=== PATIENT | female | born 1960 | race Caucasian/White ===

== ENCOUNTER 2020-10-10 13:43 | Outpatient (CLI) | payer BC, SELFPAY ==
--- NOTE | 2020-10-10 16:50 | WPDSIXMINUTE ---
Six Minute Walk Procedure Procedure Performed Pulmonary Stress Test (6 min walk) Six Minute Walk This is a 6 minutes walk test. The test was performed and interpreted in accordance with the 2014 ERS/ATS task force guidelines. Findings: The patient's resting room air oxygen saturation measured by pulse oximetry was 100% and her heart rate was 60 bpm. Patient ambulated for 427 meters and oxygen saturation remained 98% to 100%. Heart rate at the end of the study was 78 bpm. The patient did not qualify for supplemental oxygen at rest or with ambulation. There are no prior studies for comparison.
--- NOTE | 2020-10-10 16:51 | WPDPFTINT ---
PFT Procedure Performed PFT Procedure Performed Spirometry with Pre/Post Bronchodilator Plethysmography (Lung Vol) Diffusing Cap (DLCO) Flow Vol Loop PFT Interpretation This is a pulmonary function test with pre and post-bronchodilator spirometry, plethysmography and diffusing capacity. The test was performed and results interpreted in accordance with the 2019 and 2005 ATS/ERS Task Force guidelines respectively using the Global Lung Function Initiative-2012 reference equations. Patient demonstrated good effort and cooperation. Reproducibility criteria were met. The quality of the pre bronchodilator spirometry maneuver was Grade A and post bronchodilator spirometry maneuver was Grade A. Findings: Spirometry: The contour of the inspiratory and expiratory flow tracing are normal. The pre bronchodilator FVC is 4.12 L, 118% predicted. The pre bronchodilator FEV1 is 2.95 L, 108% predicted. The FEV1: FVC ratio 72%. The post bronchodilator FEV1 is 4.15 L, representing a 1% increase. The post bronchodilator FEV1 is 2.93 L, representing a 1% decrease. Plethysmography: The total lung capacity is 5.92 L, 110% predicted. The functional residual capacity is 3.55 L, 117% predicted. The residual volume is 1.69 L, 82% predicted. Diffusing capacity: The absolute diffusion capacity is 19.3, 85% predicted. The diffusing capacity corrected for alveolar volume is 3.73, 85% predicted. Impression: The spirometry is normal without evidence of an obstructive abnormality. There is no significant improvement after inhaling a single dose of albuterol. The lung volumes are normal. The diffusing capacity is normal. There are no prior studies for comparison
== END 2020-10-10 13:44 | disposition home or self-care (01) ==
LOC: ANHPFT 13:45
PROVIDERS: PCP Emergency Medicine; Visit Provider Internal Medicine Critical Care Medicine
DX: R06.02 Shortness of breath (principal)
CPT/HCPCS: 94060; 94618; 94726; 94729

== ENCOUNTER 2021-11-06 17:04 | Emergency (ER) | payer OTHER, BC, SELFPAY ==
--- NOTE | ~2021-11-06 | XR_ITS ---
EXAM: XR finger 5th LT min 2V DATE: 11/06/2021 17:44 HISTORY: SLICED OPEN DOWN TIP OF 5TH DIGIT AT WORK TODAY . COMPARISON: None available. FINDINGS: Normal mineralization. No fracture or dislocation. No lytic or blastic lesion. Joint space s are maintained. No erosion or periosteal change. Distal fifth digit soft tissue laceration. IMPRESSION: No acute osseous finding in the left fifth finger. Reviewed, dictated and finalized at location K.
[2021-11-06 17:12] VITALS: BP 152/71; PULSE 62; RESP 16; TEMP 36.3; O2SAT 100
[2021-11-06] MEDS: TETANUS,DIPHTHERIA,AC PERTUSSIS ADULT (0.5 ML) BOOSTRIX IM (18:38)
--- NOTE | 2021-11-06 18:58 | ED.GENADULT ---
HPI - General Adult General Chief complaint: Extremity Injury, Upper Stated complaint: finger injury Time Seen by Provider: 11/06/21 18:07 History of Present Illness HPI narrative: Patient is a 61-year-old female here for evaluation of a crush injury to her left fifth digit while she was at work earlier today. Patient states that her finger got caught in between a work machine leading to a small laceration. She denies any numbness or tingling in the digit, and has been able to move her finger without issue. Has not taken any medication for symptoms today. Her last tetanus is unknown. Denies any injury to the nailbed. She is right-handed. Related Data Home Medications Medication Instructions Recorded Confirmed antiarthritic combination no.2 900 mg PO 11/12/20 05/14/21 mg tablet (glucosamine-chondroitin) aspirin 81 mg tablet,delayed 81 mg PO DAILY 11/12/20 05/14/21 release (Adult Low Dose Aspirin) calcium carbonate 600 mg calcium 600 mg PO BID 11/12/20 05/14/21 (1,500 mg) tablet (Calcium) cholecalciferol (vitamin D3) 125 125 mcg PO DAILY 11/12/20 05/14/21 mcg (5,000 unit) capsule ferrous sulfate 300 mg (60 mg 300 mg PO DAILY 11/12/20 05/14/21 iron)/5 mL oral liquid multivitamin with minerals-folic tablet PO 11/12/20 05/14/21 acid 200 mcg chewable tablet (Women's Multivitamin Gummies) Allergies Allergy/AdvReac Type Severity Reaction Status Date / Time No Known Drug Allergies Allergy Mild unknown Verified 11/06/21 18:08 Review of Systems Review of Systems: Gen: Denies fevers or chills Eyes: Denies eye pain or visual change ENT: Denies congestion Respiratory: Denies shortness of breath or cough CV: Denies chest pain or palpitations GI: Denies abdominal pain nausea, emesis or diarrhea : denies burning, urgency, frequency or hematuria Musculoskeletal: Denies back pain or muscle pain Neuro: Denies numbness, tingling, weakness or focal weakness Skin: Reports laceration to left 5th fingertip Except as documented, all other systems reviewed and negative [facility] Past Medical History Medical History Asthma Shortness of Breath Tobacco abuse Surgical History Surgical History H/O section S/P excision of ganglion cyst from the hand Family History Family History Father Hypertension Family history of coronary artery disease Mother Patient's mother is in good health Sibling Patient's sister is in good health Patient's brother is in good health Social History Social History Smoking packs per day: 0.5 Smoking cigarettes per day: 10.0 Years smoked: 7 Smoking pack-years: 3.50 Smoking status: Former smoker Alcohol intake: current Exam Narrative: Gen: alert, oriented, no acute distress Eyes: EOMI, no icterus Pulm: Respirations even and unlabored, symmetric thorax expansion, no audible stridor or visible cyanosis CV: Regular rate GI: No distension, no voluntary/involuntary guarding Neuro: AOx4, moves all extremities without apparent difficulty or weakness, follows commands MSK: Full range of motion in right 5th digit and hand. Sensation intact to entire extremity. Skin: patient has an irregular, 0.75 cm laceration to the palmar aspect of the left fifth fingertip with no active bleeding. Psych: Normal mood/affect, insight/judgement good, adequate fund of knowledge, recent/remote memory intact Course Vital Signs Vital signs: Vital Signs Temperature 97.3 F L 11/06/21 17:12 Pulse Rate 62 11/06/21 17:12 Respiratory Rate 16 11/06/21 17:12 Blood Pressure 152/71 H 11/06/21 17:12 Pulse Oximetry 100 11/06/21 17:12 Oxygen Delivery Room Air 11/06/21 17:12 Temperature 97.3 F L 11/06/21 17:12 Pulse Rate 62 11/06/21 17:12
== END 2021-11-06 19:30 | disposition home or self-care (01) ==
PROVIDERS: Emergency Provider Emergency Medicine
DX: S61.217A Laceration without foreign body of left little finger without damage to nail, initial encounter (principal); W23.0XXA Caught, crushed, jammed, or pinched between moving objects, initial encounter; J45.909 Unspecified asthma, uncomplicated; Z87.891 Personal history of nicotine dependence; Z23 Encounter for immunization
CPT/HCPCS: 73140; 90471; 90715; 99283

== ENCOUNTER 2022-12-31 08:36 | Outpatient (CLI) | payer BC, SELFPAY ==
--- NOTE | 2023-01-22 21:38 | WPDSLEEPSTUD ---
Sleep Study Date of Study: 12/31/22 Ordering Provider: ALBERT Jimenez Interpreting Physician: Mae Varela MD Sleep Study Type: Polysomnogram Height: 1.68 m Weight: 63.957 kg Body Mass Index: 22.7 Neck Circumference (inches): 13 [place]: 5 Reason for Sleep Study Patient reports waking at night feeling short of breath, gasping. Sleep History Yue Siu is a 62-year-old woman with episodes of waking at night feeling short of breath and gasping a little to get some air. She rarely awakens from sleep short of breath. She never wakes at night with heartburn, belching or coughing.??She never snores, and never snores loudly enough that others complain. She occasionally has trouble sleeping when she has a cold. She rarely wakes up gasping for breath during the night. She rarely has breathing problems at night. She never sweats excessively at night. She rarely notices her heart pounding or beating irregularly during the night. She never falls asleep during the day. She never falls asleep involuntarily, never falls asleep while driving. She never experiences loss of muscle tone with strong emotion. She never feels paralyzed on waking or falling asleep. She rarely experiences vivid dreams upon waking or falling asleep. She rarely feels afraid of going to sleep. She rarely has nightmares. She rarely recalls her dreams. She occasionally has thoughts racing through her mind. She rarely feels sad or depressed. She occasionally feels anxiety. She rarely notices parts of her body jerk. She never kicks during the night. She rarely feels crawling or aching feelings in her legs. She rarely feels leg pain at night. She occasionally has morning jaw pain, and occasionally grinds her teeth at night. She occasionally feels bothered by pain during the day, rarely awakened by pain during the night. She frequently wakes up feeling stiff in the morning, frequently wakes feeling sore or achy in the morning. She frequently awakens with pain in her neck, spine, or joints. She has memory problems, bowel disturbances with constipation and gas pains, and dizziness. These problems tend to get better when she drinks enough water. Normal bedtime is 8:00 p.m. to 9:00 p.m., falling asleep within 15-30 minutes. She reports getting 7-8 hours of sleep per night. Her wake time is 4-430 a.m.. She wakes up between 2 and 3 times at night to go to the bathroom. she is able to return to sleep within 5-15 minutes. she does not take naps in the afternoon or evenings. A short nap lasting 10 or 15 minutes may be refreshing. She usually feels good on awakening. She feels better in the morning compared to other times of day. Habits:??Tobacco: quit tobacco 36 years ago Caffeine: 3-6 cups per day Alcohol: 1-2 drinks, 2-3 times a week. Recreational substances: none PMFSH Past Medical History Medical History Asthma CESAR (obstructive sleep apnea) Shortness of Breath Tobacco abuse Surgical History Surgical History H/O section S/P excision of ganglion cyst from the hand Family History Family History Father Hypertension Family history of coronary artery disease Mother Patient's mother is in good health Sibling Patient's sister is in good health Patient's brother is in good health Social History Social History Smoking packs per day: 0.5 Smoking cigarettes per day: 10.0 Years smoked: 7 Smoking pack-years: 3.50 Smoking status: Former smoker Alcohol intake: current Medications Home Medications Medication Instructions Recorded Confirmed Type albuterol sulfate 90 mcg/actuation 1 inh inhalation Q4-6H PRN 11/12/20 05/21/22 Rx aerosol inhaler shortness of breath or wheezing #8.5 grams ant
[2023-01-22 22:06] VITALS: BMI 22.7
== END 2023-01-01 07:04 | disposition home or self-care (01) ==
LOC: ANHCSM 08:40
PROVIDERS: Visit Provider Physician Assistant
DX: G47.33 Obstructive sleep apnea (adult) (pediatric) (principal)
CPT/HCPCS: 95810

== ENCOUNTER 2025-02-14 15:01 | Emergency (ER) | payer OTHER, BC, SELFPAY ==
[2025-02-14] VITALS (9 sets, daily range): BP systolic 149–161; BP diastolic 71–82; PULSE 55–81; RESP 14–18; TEMP 36.3; O2SAT 99–100
--- NOTE | ~2025-02-14 | CT_ITS ---
EXAMINATION: CT brain wo con, 02/14/2025 16:47 SENIOR ORACLE DEVELOPER HISTORY: fall COMPARISON: No comparisons available. Technique: Axial images obtained of the brain without contrast. One or more of the following dose reduction techniques were used: automated exposure control, adjustment of the mA and/or kV according to patient size, use of iterative reconstruction technique. Findings: No acute infarct or parenchymal hemorrhage. No abnormal mass or mass effect. No midline shift. No extra-axial fluid collections. No hydrocephalus. Mastoid air cells unremarkable. Sinuses and orbits unremarkable. No acute fracture. Subcutaneous swelling with subcutaneous hemorrhage noted in the right posterior parietal area. Impression: 1.No acute intracranial abnormality. Reviewed, dictated and finalized at location P. OR ORACLE DEVELOPER Impression: 1.No acute intracranial abnormality.
--- NOTE | ~2025-02-14 | CT_ITS ---
EXAM/PROCEDURE: CT cervical spine wo con HISTORY: fall COMPARISON: None available. TECHNIQUE: Cervical spine CT FINDINGS: No fracture C1-C7. Advanced degenerative changes are present throughout the cervical spine including multilevel spondylolisthesis which appears degenerative. This includes 1 to 2 mm anterolisthesis C3 and C4, C4 on C5, and retrolisthesis of C5 on C6, and anterolisthesis of C6 on C7 and approximately 3 mm anterolisthesis C7 on T1. No severe spinal canal stenosis or large disc herniation identified. No gross prevertebral or paraspinal soft tissue swelling or hematoma seen. IMPRESSION: 1. No fracture lucency C1-C7. 2. Advanced degenerative changes throughout the cervical spine including degenerative appearing spondylolisthesis at almost every level. Reviewed, dictated and finalized at location A. [employer] DELIVERER AND INSTALLER IMPRESSION: 1. No fracture lucency C1-C7. 2. Advanced degenerative changes throughout the cervical spine including degene rative appearing spondylolisthesis at almost every level.
--- NOTE | 2025-02-14 18:49 | ED.GENADULT ---
HPI - General Adult General Chief complaint: Head Injury Stated complaint: head injury at work Time Seen by Provider: 02/14/25 15:24 History of Present Illness HPI narrative: 64-year-old female presenting after sustaining a head injury after a fall from work equipment. The machinery lays about 1 ft off the ground. Patient states she misjudged a turn and was jostled out of the machine and fell out and hit her head. She reports a mild headache. Denies loss of consciousness, nausea/vomiting, light/sound sensitivity, weakness, dizziness, incontinence/retention. Related Data Home Medications ?Medication ?Instructions ?Recorded ?Confirmed ?Last Taken ?Type antiarthritic combination no.2 900 mg PO 11/12/20 05/25/24 Unknown History mg tablet (glucosamine-chondroitin) calcium carbonate (Calcium 600) 600 mg PO BID 11/12/20 05/25/24 Unknown History cholecalciferol (vitamin D3) 125 125 mcg PO DAILY 11/12/20 05/25/24 Unknown History mcg (5,000 unit) capsule ferrous sulfate 300 mg (60 mg 300 mg PO DAILY 11/12/20 05/25/24 Unknown History iron)/5 mL oral liquid multivitamin with minerals-folic tablet PO 11/12/20 05/25/24 Unknown History acid 200 mcg chewable tablet (Women's Multivitamin Gummies) diclofenac sodium 75 mg 75 mg PO BID 05/20/23 05/25/24 Unknown History tablet,delayed release Allergies Allergy/AdvReac Type Severity Reaction Status Date / Time No Known Drug Allergies Allergy Mild unknown Verified 02/14/25 15:16 Review of Systems Review of Systems: All systems reviewed & are unremarkable except as noted in HPI and below PMFSH Past Medical History Medical History CESAR (obstructive sleep apnea) Asthma Tobacco abuse Shortness of Breath Surgical History Surgical History S/P excision of ganglion cyst from the hand H/O section Family History Family History Father Hypertension Family history of coronary artery disease Mother Patient's mother is in good health Sibling Patient's sister is in good health Patient's brother is in good health Social History Social History Smoking packs per day: 0.5 Smoking cigarettes per day: 10.0 Years smoked: 7 Smoking pack-years: 3.50 Alcohol intake: current Exam Narrative: GENERAL: Well appearing, well-nourished, non-toxic, in no acute distress. HEAD: 2.5 cm hematoma noted on the right posterior aspect of the head. EYES: PERRL/EOMI, conjunctivae clear bilaterally. No nystagmus. NOSE: Normal, no drainage EARS:TMS clear, with good light reflex. No erythema or bulging. THROAT: Pharynx clear, no exudate. MMs moist. NECK: Supple. No adenopathy, no masses. RESPIRATORY: Airway patent, respirations nonlabored. Clear to auscultation bilaterally, no rales, rhonchi, wheezing. CARDIOVASCULAR: Regular rate and rhythm without murmurs, rubs, or gallops. Peripheral pulses 2+ and equal bilaterally. ABDOMINAL: Soft, nontender, nondistended, no hepatosplenomegaly. Normoactive BS. MUSCULOSKELETAL: Moves all extremities. Strength/ROM intact without gross deformities or TTP. No edema. No calf tenderness. SKIN: Warm, dry, normal color. No rashes. NEURO: A&O X3. Speech clear. Follows commands. CN II-XII intact. Sensation grossly intact. Steady gait. No ataxic movements. Strength 5/5 in upper and lower extremities bilaterally. Axco-ke-wbyp and rljyuj-vc-xyjr testing intact bilaterally. No pronator drift. PSYCHIATRIC: Appropriate mood and affect. Normal interaction. Course Vital Signs Vital signs: Vital Signs Temperature 97.4 F L 02/14/25 15:05 Pulse Rate 63 02/14/25 15:05 Respiratory Rate 18 02/14/25 15:05 Blood Pressure 161/76 H 02/14/25 15:05 Pulse Oximetry 100 02/14/25 15:05 Oxygen Delivery Room Air 02/14/25 15:05 Temperature 97.4 F L 02/14/25 15:05 Pulse Rate 81 02/14/25 17:31 Respiratory Rate 14 02/14/25 17:31 Blood Pressure 153/71 H 02/14/25 17:31 Pulse Oximetry 100 02/14/25 17:31 Oxygen Delivery Room Air 02/14/25 15:30 Medical Decision Making MDM Narrative Medical decision making narrative: 64-year-old female presenting after a head injury after a fall from work equipment. Patient states the machinery lays about 1 ft off the ground. Patient reports she misjudged a turn and was jostled out of the machine and fell out and hit her head. She reports a mild headache. Denies loss of consciousness, nausea/vomiting, light/sound sensitivity, vision changes, weakness, dizziness, incontinence/retention. Exam demonstrated a 2.5 cm hematoma on the right posterior aspect of the head. No focal neurological deficits. CT brain and C-spine negative for any acute intracranial abnormalities. Degenerative disease results discussed with patient. Patient noted that she is aware of this and is being treated by her PCP. Patient did not want any medicine for pain control. Work release filled out without any restrictions. All questions were answered to the patient's satisfaction. The patient is appropriate for outpatient treatment and follow-up. Given reasons to return. Medical Records Medical records reviewed: Yes I reviewed the external patient's medical records. Vital Signs Vital Signs: Vital Signs Temperature 97.4 F L 02/14/25 15:05 Pulse Rate 63 02/14/25 15:05 Respiratory Rate 18 02/14/25 15:05 Blood Pressure 161/76 H 02/14/25 15:05 Pulse Oximetry 100 02/14/25 15:05 Oxygen Delivery Room Air 02/14/25 15:05 Temperature 97.4 F L 02/14/25 15:05 Pulse Rate 81 02/14/25 17:31 Respiratory Rate 14 02/14/25 17:31 Blood Pressure 153/71 H 02/14/25 17:31 Pulse Oximetry 100 02/14/25 17:31 Oxygen Delivery Room Air 02/14/25 15:30 Imaging Data Attestation: I personally reviewed and interpreted this imaging study as follows: Radiologist's impression: ITS Impressions Cervical Spine CT 02/14/25 16:55 IMPRESSION: 1. No fracture lucency C1-C7. 2. Advanced degenerative changes throughout the cervical spine including degenerative appearing spondylolisthesis at almost every level. Head CT 02/14/25 16:55 Impression: 1.No acute intracranial abnormality. Critical Care Time Critical Care Time Critical Care Time: No Discharge Plan Discharge Clinical Impression: Fall, Traumatic hematoma of head Patient Disposition: Home Condition: Stable Instructions: Head Injury (ED) Additional Instructions: Take medications as prescribed. Tylenol and NSAIDs (Ibuprofen, Naproxen, Diclofenac) as needed for pain. Return to the emergency department if you experience fever, chest pain, shortness of breath, abdominal pain with nausea and vomiting, weakness, numbness/tingling, or any other symptoms that are concerning to you. Follow up with primary care doctor Patient Language: Polish Prescriptions: No Action cholecalciferol (vitamin D3) 125 mcg (5,000 unit) capsule 125 mcg PO DAILY ferrous sulfate 300 mg (60 mg iron)/5 mL liquid 300 mg PO DAILY Women's Multivitamin Gummies 200 mcg tablet,chewable PO glucosamine-chondroitin 900 mg tablet PO calcium carbonate [Calcium 600] 600 mg calcium (1,500 mg) tablet 600 mg PO BID albuterol sulfate 90 mcg/actuation HFA aerosol inhaler 1 inh inhalation Q4-6H PRN (Reason: shortness of breath or wheezing) Qty: 8.5 1RF diclofenac sodium 75 mg tablet,delayed release (DR/EC) 75 mg PO BID montelukast 10 mg tablet See Rx Instructions .ROUTE .COMPLEX Qty: 90 3RF Dose Instruction: Take 1 tablet by mouth once daily Rx Instructions: Take 1 tablet by mouth once daily fluticasone propion-salmeterol 113-14 mcg/actuation aerosol powdr breath activated See Rx Instructions .ROUTE .COMPLEX Qty: 1 11RF Dose Instruction: INHALE 1 PUFF TWICE DAILY RINSE MOUTH AND SPIT AFTER EACH USE Rx Instructions: INHALE 1 PUFF TWICE DAILY RINSE MOUTH AND SPIT AFTER EACH USE Follow-up/Referrals: PHYSICIAN,ENVIRONMENTAL EMERGENCIES PLANNER [Primary Care Provider, Internal Medicine]
== END 2025-02-14 18:01 | disposition home or self-care (01) ==
DX: S00.03XA Contusion of scalp, initial encounter (principal); J45.909 Unspecified asthma, uncomplicated; G47.33 Obstructive sleep apnea (adult) (pediatric); F17.210 Nicotine dependence, cigarettes, uncomplicated; W31.89XA Contact with other specified machinery, initial encounter
CPT/HCPCS: 70450; 72125; 99283; 99284